=== PATIENT | male | born 1960 | race American Indian/Alaskan Native ===

== ENCOUNTER 2017-04-09 06:08 | Day surgery (SDC) | payer BC ==
[~2017-04-09 06:08] MED LIST: Dextrose 5%-0.45% NaCl 1,000 ML IV SCH; Sodium Chloride 0.9% 10 ML Syringe FLUSH PRN
[2017-04-09] MEDS ORDERED: Midazolam 1 MG/ML 2 ML SDV IV ONE ×7 (06:09→08:18)
[2017-04-09] MEDS ORDERED: fentaNYL 100 MCG/2 ML SDV IV ONE ×3 (06:09→08:12)
[2017-04-09] MEDS ORDERED: Midazolam 1 MG/ML 2 ML SDV ONE (06:14)
[2017-04-09] MEDS ORDERED: fentaNYL 100 MCG/2 ML SDV ONE (06:15)
--- NOTE | 2017-04-09 13:12 | OR ---
DATE: 04/09/2017 PROCEDURE: Total colonoscopy, NBI, and cold snare polypectomy. INSTRUMENT USED: PCF-H180AL Olympus video colonoscope. PREMEDICATIONS: Fentanyl 100 mcg intravenous, Versed 4 mg intravenous. The procedure was done under pulse oximetry, BP recording, and assisted living coordinator. INDICATION: Screening colonoscopic examination is done for detection of any polypoid lesions and removal, endoscopic hemostasis therapy if needed. DESCRIPTION OF PROCEDURE: Initial rectal exam was unremarkable. Rigid anoscopy was normal. The colonoscope was passed with ease up to the ileocecal area, photographs were taken of the normal-appearing cecum, identified by landmarks of appendiceal orifice and double-bulged ileocecal folds. No bleeding was noted from any of the visualized areas at the commencement of the examination. No stricture. No vascular ectasia. No large isolated ulcerations seen. No evidence of diffuse inflammatory bowel disease in the form of friability, contact bleeding, or ulcerations. Probing the proximal sides of folds and flexures, using adequate distention and clearing up the stool material, withdrawal of the scope was made. In the mid sigmoid colon, a 3-mm sized benign- appearing polyp was noted, NBI views were obtained, photographs were taken, cold snare polypectomy was done, the tissue was retrieved and sent for histopathology. No bleeding was noted from any of the visualized areas at the completion of examination. IMPRESSION: Diminutive sigmoid polyps. The patient tolerated the procedure well. [facility] /[id number]
== END 2017-04-09 10:43 | disposition home or self-care (01) ==
LOC: DL.ENDO 06:08
PROVIDERS: ATTEND Internal Medicine Gastroenterology
DX: Z12.11 Encounter for screening for malignant neoplasm of colon (principal); D12.5 Benign neoplasm of sigmoid colon; E66.9 Obesity, unspecified; I10 Essential (primary) hypertension; E78.5 Hyperlipidemia, unspecified
CPT/HCPCS: 45385; J2250; J3010; J7042

== ENCOUNTER 2022-04-06 18:19 | Emergency (ER) | payer BC ==
[2022-04-06] MEDS ORDERED: Tamsulosin 0.4 MG Cap.ER PO ONE ×2 (18:20→19:37)
[2022-04-06] MEDS ORDERED: traMADol 50 MG Tab PO ONE (19:08)
[2022-04-06] MEDS ORDERED: Sodium Chloride 0.9% 10 ML Syringe FLUSH PRN (19:36)
[2022-04-06] MEDS ORDERED: Finasteride 5 MG Tab PO SCH (19:45)
[2022-04-06] MEDS ORDERED: Finasteride 5 MG Tab ONE (19:48)
[2022-04-06 20:05] LABS: ANION GAP 14.2 mEq/L (7-13)
[2022-04-06] MEDS ORDERED: Tamsulosin 0.4 MG Cap.ER ONE (20:27)
== END 2022-04-06 20:46 | disposition home or self-care (01) ==
LOC: DL.ED 18:19
DX: R33.9 Retention of urine, unspecified (principal); E78.00 Pure hypercholesterolemia, unspecified; I10 Essential (primary) hypertension; Z79.899 Other long term (current) drug therapy
CPT/HCPCS: 36415; 80053; 81001; 99283; A9270; J3490